=== PATIENT | female | born 1970 | race Caucasian/White ===

== ENCOUNTER 2021-03-17 09:06 | Emergency (ER) | payer BC ==
[2021-03-17 09:14] VITALS: BP 137/96; PULSE 73; TEMP 98.8; BMI 31.7
[2021-03-17] MEDS ORDERED: ACETAMINOPHEN 500 MG TABLET (FP) PO ONE (09:32)
[2021-03-17] MEDS ORDERED: ACETAMINOPHEN 325 MG TABLET (FP) ONE (09:36)
== END 2021-03-17 10:17 | disposition home or self-care (01) ==
LOC: FER 09:06
DX: M79.671 Pain in right foot (principal)
CPT/HCPCS: 73630-TC-RT-FY; 99283-25

== ENCOUNTER 2021-05-15 16:34 | Emergency (ER) | payer BC ==
[2021-05-15 16:46] VITALS: BMI 31.7
[2021-05-15] MEDS ORDERED: ACETAMINOPHEN 1000 MG/100 ML VIAL (NON FORMULARY) IVPB ONE (17:08)
[2021-05-15] MEDS ORDERED: ACETAMINOPHEN INJECTION 100 ML IVPB ONE (17:22)
[2021-05-15 17:36] LABS: HEMOGLOBIN 14.5 GM/dl (10.7-15.3)
[2021-05-15 17:38] LABS: BASO % 1.9 % (0-2.0); EOS % 2.3 % (0-4.5); LYMPH % 22.5 % (8-40); MCH 29.3 pg (25.7-33.7); MCHC 34.6 g/dl (32.0-36.0); MEAN CELL VOLUME 84.7 fl (80-96); MEAN PLT VOLUME 10.3 fl (7.5-11.1); MONO % 6.8 % (3.8-10.2); NEUT % 66.5 % (42.8-82.8); PLATELET COUNT 243 10^3/uL (134-434); RBC 4.96 M/mm3 (3.60-5.2); RDW 13.7 % (11.6-15.6); WHITE BLOOD COUNT 7.7 K/mm3 (4.0-10.8)
[2021-05-15 17:46] LABS: ALBUMIN 4.7 g/dl (3.4-5.0); ANION GAP 9 MMOL/L (8-16); BILIRUBIN,TOTAL 0.7 mg/dl (0.2-1); CALCIUM 9.8 mg/dl (8.5-10); CHLORIDE 102 mmol/L (98-107); CO2 27 mmol/L (21-32); CREATININE 0.8 mg/dl (0.55-1.3); GLUCOSE,RANDOM 98 mg/dl (74-106); SODIUM 138 mmol/L (136-145)
[2021-05-15 17:48] LABS: ACTIVATED PTT 28.5 SECONDS (25.2-36.5); ALK PHOS 79 U/L (45-117); SGOT/AST 25 U/L (15-37); SGPT/ALT 27 U/L (13-61); TOT PROT 7.8 g/dl (6.4-8.2)
[2021-05-15 17:53] LABS: INR 0.98 (0.82-1.09)
[2021-05-15 19:10] LABS: LIPASE 182 U/L (73-393)
[2021-05-15] MEDS ORDERED: IBUPROFEN 600 MG TABLET (FP) PO ONE ×2 (19:32→19:35)
[2021-05-15] MEDS ORDERED: LIDOCAINE 5% TOPICAL PATCH TP ONE (19:34)
[2021-05-15] MEDS ORDERED: LIDOCAINE 5% TOPICAL PATCH ONE (19:35)
[2021-05-15 19:42] VITALS: BP 135/72; PULSE 71; TEMP 97.8
[2021-05-15] MEDS ORDERED: LIDOCAINE PATCH REMOVAL MC SCH (22:00)
== END 2021-05-15 19:44 | disposition home or self-care (01) ==
LOC: FER 16:34
PROC: 3E033GC Introduction of Other Therapeutic Substance into Peripheral Vein, Percutaneous Approach (ICD-10-PCS; principal; 2021-05-15)
DX: R07.9 Chest pain, unspecified (principal)
CPT/HCPCS: 36415; 71046-TC-FY; 80053; 82550; 83690; 84484; 84703; 85025; 85610; 85730; 93005; 99285-25; J0131

== ENCOUNTER 2021-12-28 10:08 | Emergency (ER) | payer BC ==
[2021-12-28 10:17] VITALS: BP 132/57; PULSE 73; TEMP 98.3; BMI 32.5
[2021-12-28] MEDS ORDERED: ACETAMINOPHEN 500 MG TABLET (FP) PO ONE (10:38)
[2021-12-28] MEDS ORDERED: ACETAMINOPHEN 500 MG TABLET (FP) ONE (10:44)
== END 2021-12-28 11:35 | disposition home or self-care (01) ==
LOC: FER 10:08
DX: M25.561 Pain in right knee (principal)
CPT/HCPCS: 73562-TC-RT-FY; 99283-25

== ENCOUNTER 2023-01-18 16:58 | Emergency (ER) | payer BC ==
[2023-01-18 17:12] VITALS: BP 146/98; PULSE 82; RESP 20; TEMP 98.5; BMI 47.5
[2023-01-18] MEDS ORDERED: KETOROLAC TROMETHAMINE 30 MG/1 ML VIAL IM ONE (17:13)
[2023-01-18] MEDS ORDERED: METHOCARBAMOL 500 MG TABLET PO ONE (17:14)
[2023-01-18] MEDS ORDERED: LIDOCAINE 5% TOPICAL PATCH TP ONE (17:14)
[2023-01-18] MEDS ORDERED: LIDOCAINE 5% TOPICAL PATCH ONE (17:33)
[2023-01-18] MEDS ORDERED: KETOROLAC TROMETHAMINE 30 MG/1 ML VIAL ONE (17:33)
[2023-01-18] MEDS ORDERED: METHOCARBAMOL 500 MG TABLET ONE (17:33)
[2023-01-18 20:35] LABS: EPITHELIAL CELLS FEW /hpf; URIC ACID CRYSTALS FEW /hpf (NONE SEEN)
[2023-01-18] MEDS ORDERED: LIDOCAINE PATCH REMOVAL MC SCH (22:00)
[2023-01-18] MEDS ORDERED: NITROFURANTOIN MACROCRYSTAL 50 MG CAPSULE (FP) ONE (22:10)
[2023-01-18] MEDS ORDERED: NITROFURANTOIN MACROCRYSTAL 50 MG CAPSULE (FP) PO SCH (22:15)
== END 2023-01-18 22:27 | disposition home or self-care (01) ==
LOC: FER 16:58
PROC: 3E0233Z Introduction of Anti-inflammatory into Muscle, Percutaneous Approach (ICD-10-PCS; principal; 2023-01-18)
DX: R10.9 Unspecified abdominal pain (principal); M54.6 Pain in thoracic spine; N39.0 Urinary tract infection, site not specified; M54.50 Low back pain, unspecified
CPT/HCPCS: 71046-TC-FY; 74176-TC; 81003; 81015; 99285-25

== ENCOUNTER 2023-08-10 08:35 | Emergency (ER) | payer BC ==
[2023-08-10 09:05] VITALS: RESP 18; TEMP 99.9; BMI 30.9
[2023-08-10] MEDS ORDERED: guaiFENesin 200 MG/10 ML 10 ML UNIT-DOSE CUPS PO ONE (09:09)
[2023-08-10] MEDS ORDERED: ALBUTEROL SO4 0.083% IH SOL 2.5 MG/3 ML VIAL.NEB. NEB ONE ×2 (09:09→09:20)
[2023-08-10] MEDS ORDERED: ACETAMINOPHEN 500 MG TABLET (FP) PO ONE (09:09)
[2023-08-10] MEDS ORDERED: ACETAMINOPHEN 500 MG TABLET (FP) ONE (09:19)
[2023-08-10] MEDS ORDERED: guaiFENesin/D-METHORPHAN HB 10 ML UNIT-DOSE CUPS ONE (09:20)
[2023-08-10] MEDS ORDERED: IBUPROFEN 600 MG TABLET (FP) PO ONE ×2 (10:19→10:25)
[2023-08-10] MEDS ORDERED: AMOX TR/POT CLAV 875MG/125MG TABLETS (FP) PO ONE (10:21)
[2023-08-10] MEDS ORDERED: AMOX TR/POT CLAV 875MG/125MG TABLETS (FP) ONE (10:25)
[2023-08-10 11:25] VITALS: BP 133/85; PULSE 102
== END 2023-08-10 11:56 | disposition home or self-care (01) ==
LOC: FER 08:35
PROC: 3E0F7GC Introduction of Other Therapeutic Substance into Respiratory Tract, Via Natural or Artificial Opening (ICD-10-PCS; principal; 2023-08-10)
DX: R05.9 Cough, unspecified (principal); R09.81 Nasal congestion; R68.83 Chills (without fever); J32.9 Chronic sinusitis, unspecified; B34.9 Viral infection, unspecified; Z20.822 Contact with and (suspected) exposure to COVID-19
CPT/HCPCS: 0241U-QW; 71045-TC-FY; 93005; 99285-25

== ENCOUNTER 2023-08-23 11:18 | Emergency (ER) | payer BC ==
[2023-08-23 11:26] VITALS: BP 133/89; PULSE 88; RESP 18; TEMP 97.9; BMI 30.9
[2023-08-23] MEDS ORDERED: ACETAMINOPHEN 1000 MG/100 ML BAG IVPB ONE (12:08)
[2023-08-23] MEDS ORDERED: SODIUM CHLORIDE 1,000 ML IV STA (12:08)
[2023-08-23] MEDS ORDERED: ACETAMINOPHEN INJECTION 100 ML IVPB ONE (12:10)
[2023-08-23 12:54] LABS: HEMATOCRIT 40.3 % (32.4-45.2); HEMOGLOBIN 13.7 G/dL (10.7-15.3); MCH 29.5 pg (25.7-33.7); MCHC 34.1 g/dl (32.0-36.0); MEAN CELL VOLUME 86.7 fl (80-96); MEAN PLT VOLUME 9.5 fl (7.5-11.1); PLATELET COUNT 313.3 10^3/uL (134-434); RBC 4.65 10^6/uL (3.60-5.2); RDW 14.4 % (11.6-15.6); WHITE BLOOD COUNT 8.7 10^3/uL (4.0-10.8)
[2023-08-23 12:58] LABS: ALBUMIN 4.4 g/dl (3.4-5.0); BILIRUBIN,TOTAL 0.5 mg/dl (0.2-1); CALCIUM 9.7 mg/dl (8.5-10.1); CREATININE 0.7 mg/dl (0.6-1.3); POTASSIUM 4.1 mmol/L (3.5-5.1); TOT PROT 7.2 g/dl (6.4-8.2)
[2023-08-23] MEDS ORDERED: CYCLOBENZAPRINE HCL 5 MG TABLET ONE (13:24)
[2023-08-23 14:05] LABS: PLATELET ESTIMATE ADEQUATE
== END 2023-08-23 14:20 | disposition home or self-care (01) ==
LOC: FER 11:18
PROC: 3E033NZ Introduction of Analgesics, Hypnotics, Sedatives into Peripheral Vein, Percutaneous Approach (ICD-10-PCS; principal; 2023-08-23)
PROC: 3E0337Z Introduction of Electrolytic and Water Balance Substance into Peripheral Vein, Percutaneous Approach (ICD-10-PCS; 2023-08-23)
DX: R53.1 Weakness (principal); R05.9 Cough, unspecified; R53.83 Other fatigue; B34.9 Viral infection, unspecified
CPT/HCPCS: 36415; 71046-TC-FY; 80053; 81003; 84484; 85027; 93005; 99285-25